=== PATIENT | female | born 1975 | race Caucasian/White ===

== ENCOUNTER 2024-12-16 12:26 | Emergency (ER) | payer OTHER, SELFPAY ==
[2024-12-16 12:29] VITALS: BP 149/105
--- NOTE | 2024-12-16 14:31 | ED.GENMED ---
History of Present Illness
<Kamala Jackson PA-C - Last Filed: 12/17/24 08:18>
General
Chief Complaint: Musculo-Skeletal Complaint
Source: patient
Exam Limitations: none
Time Seen by Provider: 12/16/24 13:57
Nursing documentation reviewed up to this point in time: agreed with
History of Present Illness
History of Present Illness:
49 y/o F
h/o DDD
says she had c4-c6 cervical fusion 10 years ago in [place] where she formerly lived
has had R sided neck pain worse with movement with shootin pains down R arm for 1.5 weeks
no injury
says it started very gradually but got worse the past 3 days
now very lmited painful ROM an dhaving a few days of tingling in her R hand fingertips
no wakness, fever, ehadache, chiropractor, trauma, double vision
has tried motrin without relief
has hives becaue she is nervous and in pain
pt tells me originally it wasnt just DDD but flakita ther bone was eroded and 'hanging on by a thread' and she is worried that she is in the same position
Past History
<Kamala Jackson PA-C - Last Filed: 12/17/24 08:18>
Past History
ED Past Medical History: Cancer (Breast), Psychiatric (Depression, thoughts of suicide), Other (Cervical disc disease) and Other (Alcohol abuse)
ED Past Surgical History: Gynecological (Bilateral mastectomy) and Orthopedic (Cervical fusion C5)
Social History
Tobacco: Non-smoker
Alcohol: Binge drinker
Drug: Marijuana
Personal:
Living: with family
Employment: Not employed
Family History
Family History: Other (Family history of depression)
Phy Exam
<Kamala Jackson PA-C - Last Filed: 12/17/24 08:18>
Physical Exam
Physical Exam:
GENERAL: Alert uncomfortable, painful ROM
HEAD: NCAT
NECK: no midline tenderness, very tender R sided paraspinal muscles, very limited ROM, tender R trap
CARDIAC: Regular rate and rhythm, no edema
LUNGS: Clear breath sounds bilaterally, no acute respiratory distress, no wheezes/rales/rhonchi
ABDOMEN: Soft, without focal tenderness, no r/g, no cvat, normal bowel sounds, nondistended
NEUROLOGICAL: Alert and oriented, no focal neuro deficits, CN intact, 5/5 strength, sensation intact grossly;
SKIN: Warm and dry, urticaria upper chest/neck/arms which resolved after i spoke with pt (anxiety hives)
PSYCH: Normal and appropriate interaction.
Course
<Kamala Jackson PA-C - Last Filed: 12/17/24 08:18>
Orders/Labs/Results
Orders:
Orders
12/16/24 14:27
CT Cervical Spine W/o Iv Contr Urgent
Comment:
Reason For Exam: neck pain R arm numb; h/o DDD fusion
Dexamethasone Sod Phosphate [Decadron] 10 mg IV NOW STA
Ketorolac [Toradol] 30 mg IV NOW STA
diazePAM [Valium Injection] 5 mg IV NOW STA
Vital Signs
Initial and Last Documented VS:
Initial Vital Signs
Temp Pulse Resp BP Pulse Ox
36.8 C 77 16 149/105 99
12/16/24 12:29 12/16/24 12:29 12/16/24 12:29 12/16/24 12:29 12/16/24 12:29
Last Documented Vital Signs
Temp Pulse Resp BP Pulse Ox
37.4 C 70 16 128/87 98
12/16/24 15:51 12/16/24 15:51 12/16/24 15:51 12/16/24 15:51 12/16/24 15:51
<Tomy Betancur PA-C - Last Filed: 12/16/24 19:56>
Orders/Labs/Results
Orders:
Orders
12/16/24 14:27
CT Cervical Spine W/o Iv Contr Urgent
Comment:
Reason For Exam: neck pain R arm numb; h/o DDD fusion
Dexamethasone Sod Phosphate [Decadron] 10 mg IV NOW STA
Ketorolac [Toradol] 30 mg IV NOW STA
diazePAM [Valium Injection] 5 mg IV NOW STA
Vital Signs
Initial and Last Documented VS:
Initial Vital Signs
Temp Pulse Resp BP Pulse Ox
36.8 C 77 16 149/105 99
12/16/24 12:29 12/16/24 12:29 12/16/24 12:29 12/16/24 12:29 12/16/24 12:29
Last Documented Vital Signs
Temp Pulse Resp BP Pulse Ox
37.4 C 70 16 128/87 98
12/16/24 15:51 12/16/24 15:51 12/16/24 15:51 12/16/24 15:51 12/16/24 15:51
<Kamala Jackson PA-C - Last Filed: 12/17/24 08:18>
MDM/Problems Addressed
Differential Diagnosis Includes:
cervical radiuculopathy, spinal stenosis, muscle spasm
MDM/Problems Addressed:
49 y/o F
h/o previous cervcial fusion after having severe DDD
feels slimilar
pain into her R arm with some numbness
gradual x 1.5 weeks; no inciting injury
no weakness, fever, IVDA
very anxious baseline
gets hives when anxious, has hives here initially
very limited ROM, has some degree of torticollis/muscle spasm but likely radiculoapthy yspmtoms into arm which is nort objectively numb or weak
d/w ed attending
ct cervical spine
iv pain control
likely d/c home with steroids and ortho/spine f/u
<Tomy Betancur PA-C - Last Filed: 12/16/24 19:56>
*Radiology
Radiology exam reviewed: radiology read reviewed
*Critical Care Note
Total Time (30-74mins, 75-104mins- exclusive of procedures): Not Applicable
<Tomy Betancur PA-C - Last Filed: 12/16/24 19:56>
Patient Management
Escalation/DeEscalation of care consider admission/obs:
Patient received in signout pending CT results. Patient CT shows small disc herniation at C5-C6 and C3-C4 with minimal spinal cord compression. Patient was provided with a printout of CT report. Will send patient home with prescription for
Percocet as well as a Medrol Dosepak. She does take Xanax daily and I strongly encourage patient not to mix these 2 medications. Information for orthopedics was provided. Patient aware of return precautions to the emergency room.
ED Attending Note
<Kamala Jackson PA-C - Last Filed: 12/17/24 08:18>
-
Portions of this chart may have been created with voice recognition software.� Occasional wrong word or��sound alike� substitutions may have occurred due to the inherent limitations of voice recognition software.
Discharge Plan
Departure
Patient Disposition: Home (Routine Discharge)
Date of Disposition: 12/16/24
Time of Disposition: 18:00
Patient with high blood pressure during this ER visit?: Yes
Discharge Problem:
Cervical radiculopathy
Instructions: Herniated Disc (DC)
Prescriptions:
New
oxycodone-acetaminophen [Percocet] 5-325 mg tablet
1 tab PO Q6HPRN PRN (Reason: pain) Qty: 6 0RF
methylprednisolone [Medrol (David)] 4 mg tablets,dose pack
4 mg PO DIRECTED Qty: 21 0RF
Referrals:
Morris Jay, DO [Non-Admitting Privileges] - (Pain Management)
Mary Jo Alcantara I., DO [Active] - (Ortho)
NONE,* [Family Provider] -
Interventions
Interventions:
*Risk Screen - Suicide Last Done: 12/16/24 12:29
*General Assessment Last Done: 12/16/24 12:29
*Neglect/Abuse Screening Last Done: 12/16/24 17:00
*ED COVID-19 Vaccine History Last Done: 12/16/24 12:29
*Nursing Disposition Last Done: 12/16/24 19:12
ED-Musculoskeletal Assessment Last Done: 12/16/24 13:00
Discharge Date and Time
Discharge Date/Time: 12/16/24 18:30
Print Language: SYRIAC
[2024-12-16 15:00] VITALS: BMI 33.1
[2024-12-16] MEDS: DECADRON 10 MG IV (15:13)
[2024-12-16] MEDS: TORADOL 30 MG IV (15:16)
[2024-12-16] MEDS: VALIUM INJECTION 5 MG IV (15:17)
[2024-12-16 15:51] VITALS: BP 128/87
== END 2024-12-16 18:30 | disposition home or self-care (01) ==
LOC: EMR 12:26
PROVIDERS: EMERGENCY PHYSICIAN Emergency Medicine
DX: M54.12 Radiculopathy, cervical region (principal); F32.A Depression, unspecified; Z79.899 Other long term (current) drug therapy; Z85.3 Personal history of malignant neoplasm of breast; Z98.1 Arthrodesis status
CPT/HCPCS: 99284; 96374; 96375; 72125